=== PATIENT | female | born 1955 | race Caucasian/White ===

== ENCOUNTER 2023-10-23 05:34 | Day surgery (SDC) | payer OTHER ==
[2023-10-19 09:15] VITALS: BMI 32.3
[2023-10-23] MEDS ORDERED: Vancomycin 1 GM VIAL ONE (06:14)
[2023-10-23] MEDS ORDERED: EPINEPHrine 1 MG/ML VIAL ONE (06:14)
[2023-10-23] MEDS ORDERED: Thrombin 5000 UNITS/5 ML VIAL ONE (06:14)
[2023-10-23] MEDS ORDERED: Bupivacaine PF 0.5% 30 ML VIAL ONE (06:15)
[2023-10-23] MEDS ORDERED: PROPOFOL 20 ML ONE ×2 (06:17→09:24)
[2023-10-23] MEDS ORDERED: Fentanyl 250 MCG/5 ML VIAL ONE (06:18)
[2023-10-23] MEDS ORDERED: Lidocaine 1% PF 5 ML VIAL ONE (06:19)
[2023-10-23] MEDS ORDERED: Rocuronium Bromide 10 MG/ML (10ML VIAL) ONE (06:19)
[2023-10-23 06:36] LABS: #Basophils 0.1 thou/uL (0.0-0.2); #Eosinphils 0.3 thou/uL (0.0-0.7); #Monocytes 0.6 thou/uL (0.11-0.59); #Neutrophils 3.7 thou/uL (1.40-6.50); %Basophils 0.9 % (0.0-1.0); %Eosinophils 4.5 % (0.0-10.0); %Lymphocytes 27.7 % (21.0-51.0); %Monocytes 9.1 % (0.0-10.0); %Neutrophils 56.3 % (42.0-75.0); Hematocrit 41.5 % (36.0-47.0); Hemoglobin 13.8 g/dL (12.0-16.0); Mean Corpuscular HGB CONC 33.3 g/dL (32.0-36.0); Mean Corpuscular Hemoglobin 28.5 pg (27.0-31.0); Mean Corpuscular Volume 85.6 fl (78.0-98.0); Mean Platelet Volume 9.3 fL (7.4-10.4); Platelet Count 222 10x3/uL (130-400); RBC Distribution Width 12.7 % (11.5-14.5); Red Blood Cell (RBC) Count 4.85 mill/uL (4.20-5.40); White Blood Cell (WBC) Count 6.5 10x3/uL (4.8-10.8)
[2023-10-23] MEDS ORDERED: Sodium Chloride 0.9% 100 ML ONE (06:48)
[2023-10-23] MEDS ORDERED: CEFAZOLIN 2 GM VIAL ONE (06:48)
[2023-10-23] MEDS ORDERED: Ondansetron ODT 4 MG TAB ONE (07:04)
[2023-10-23 07:05] LABS: INR-International Normal Ratio 0.9; PTT 26.9 sec (22.9-36.1); Prothrombin Time 12.4 sec (12.0-14.7)
[2023-10-23] MEDS ORDERED: PHENYLEPHRINE-NS 100 MCG/ML 10 ML SYRINGE ONE (07:27)
[2023-10-23] MEDS ORDERED: Metoclopramide HCl 10 MG/2 ML VIAL ONE ×2 (07:37→08:58)
[2023-10-23] MEDS ORDERED: Ondansetron PF 4 MG/2 ML Vial ONE (08:03)
[2023-10-23] MEDS ORDERED: Dexamethasone 20 MG/5 ML VIAL ONE (08:03)
[2023-10-23] MEDS ORDERED: NEOSTIGMINE 3 MG/3 ML SYR 3 MG/3 ML SYRINGE ONE (09:38)
[2023-10-23] MEDS ORDERED: Glycopyrrolate 0.2 MG/ML 5 ML SYRINGE ONE (09:38)
[2023-10-23] MEDS ORDERED: Esmolol 100 MG/10 ML VIAL ONE (09:55)
[2023-10-23] MEDS ORDERED: Ketorolac Tromethamine 30 MG/ML VIAL ONE (10:06)
== END 2023-10-23 13:37 | disposition home or self-care (01) ==
LOC: SDC 05:34
PROVIDERS: ATTEND Neurological Surgery
PROC: 01NB0ZZ Release Lumbar Nerve, Open Approach (ICD-10-PCS; principal; 2023-10-23)
DX: M48.062 Spinal stenosis, lumbar region with neurogenic claudication (principal); M48.02 Spinal stenosis, cervical region; M71.30 Other bursal cyst, unspecified site; G89.29 Other chronic pain; E11.9 Type 2 diabetes mellitus without complications; Z79.84 Long term (current) use of oral hypoglycemic drugs; Z79.899 Other long term (current) drug therapy
CPT/HCPCS: 85025; 85610; 85730; J0171; J1100; J1885; J2405; J2704; J2765; J3010; J3370; J3490; Q0162; S0020